=== PATIENT | female | born 1965 | race Caucasian/White ===

== ENCOUNTER → 2017-01-15 | Outpatient (CLI) | payer BC ==
[~2017-01-15] MED LIST: ACET-1138 PO; ASPI81TA28 PO; OXYSR10 PO; RXC5 PO
== END | disposition home or self-care (01) ==
LOC: C.PAPS 15:01
PROVIDERS: ATTEND Internal Medicine
DX: Z01.419 Encounter for gynecological examination (general) (routine) without abnormal findings (principal)

== ENCOUNTER → 2017-01-16 | Outpatient (CLI) | payer BC | END | disposition home or self-care (01) | LOC: C.LABSPEC 15:18 | PROVIDERS: ATTEND Internal Medicine | DX: Z12.11 Encounter for screening for malignant neoplasm of colon (principal) ==

== ENCOUNTER → 2017-01-18 | Outpatient (CLI) | payer BC ==
[2017-01-18 12:24] LABS: BASO % 1.6 %; BASO ABS # 0.11 K/uL (0-0.2); COMPLETE YES; EOS % 3.2 %; HEMATOCRIT 43.1 % (37-47); IG% 0.1 %; LYMPH % 33.8 %; LYMPH ABS # 2.31 K/uL (1.2-3.4); MEAN CELL VOLUME 85.3 fL (80-100); MEAN CORPUSCULAR HEMOGLOBIN 29.5 pg (25-34); MEAN CORPUSCULAR HGB CONC 34.6 g/dl (32-36); MEAN PLATELET VOLUME 12.1 fL (7.4-10.4); MONO % 6.4 %; NEUT % 54.9 %; PLATELET COUNT 242 K/uL (130-400); RED BLOOD COUNT 5.05 M/uL (4.2-5.4); WHITE BLOOD COUNT 6.84 K/uL (4.8-10.8)
[2017-01-18 13:24] LABS: AST/SGOT 17 U/L (15-37); BLOOD UREA NITROGEN 14 mg/dl (7-18); BUN/CREATININE RATIO 17.8 (10-20); CARBON DIOXIDE 24 mmol/L (21-32); CHLORIDE 109 mmol/L (98-107); CREATININE 0.81 mg/dl (0.60-1.20); GLUCOSE 109 mg/dl (70-99); POTASSIUM 3.9 mmol/L (3.5-5.1); SODIUM 141 mmol/L (136-145)
[2017-01-18 13:30] LABS: ESTIMATED AVERAGE GLUCOSE 111 mg/dl; HA1C FLAG Normal (Normal)
[2017-01-18 13:54] LABS: ALB/GLOB RATIO 0.9 (0.9-2); ALKALINE PHOSPHATASE 118 U/L (45-117); ALT/SGPT 24 U/L (12-78); CHOLESTEROL 196 mg/dl (0-200); CHOLESTEROL/HDL RATIO 3.3; HDL CHOLESTEROL 59 mg/dl; TRIGLYCERIDES 111 mg/dl (0-150); VERY LOW DENSITY LIPOPROT CALC 22 mg/dl
[2017-01-18 14:35] LABS: CALCIUM 9.4 mg/dl (8.5-10.1)
== END | disposition home or self-care (01) ==
LOC: C.LABSPEC 12:05
PROVIDERS: ATTEND Internal Medicine
DX: R53.83 Other fatigue (principal); R73.9 Hyperglycemia, unspecified; E78.5 Hyperlipidemia, unspecified

== ENCOUNTER → 2017-01-25 | Outpatient (CLI) | payer BC ==
--- NOTE | 2017-01-25 16:35 | MAMMOGRAPHY REPORT ---
BILATERAL DIGITAL SCREENING MAMMOGRAM TOMOSYNTHESIS WITH CAD: 01/25/2017 CLINICAL HISTORY: Routine screening. Patient has no complaints. TECHNIQUE: Breast tomosynthesis in addition to standard 2D mammography was performed. Current study was also evaluated with a Computer Aided Detection (CAD) system. COMPARISON: Comparison is made to exams dated: 09/16/2015 mammogram, 05/21/2014 mammogram, 03/26/2013 mammogram, 06/02/2011 mammogram, 06/01/2010 mammogram - [facility], and 11/02/2006. BREAST COMPOSITION: There are scattered areas of fibroglandular density in both breasts. FINDINGS: No suspicious masses, calcifications, or areas of architectural distortion are noted in e ither breast. There has been no significant interval change compared to prior exams. IMPRESSION: ACR BI-RADS CATEGORY 1: NEGATIVE There is no mammographic evidence of malignancy. A 1 year screening mammogram is recommended. The p atient will receive written notification of the results. Approximately 10% of breast cancers are not detected with mammography. A negative mammographic repor t should not delay biopsy if a clinically suggestive mass is present. Janel Olguin M.D. ah/:01/25/2017 15:26:58 Mobile Lounge Driver Or Operator: Richy WASSERMAN(Parviz)(M), [facility] letter sent: Normal 1/2 BI-RADS Code: ACR BI-RADS Category 1: Negative
== END | disposition home or self-care (01) ==
LOC: C.MAMM 14:45
PROVIDERS: ATTEND Internal Medicine
DX: Z12.31 Encounter for screening mammogram for malignant neoplasm of breast (principal)

== ENCOUNTER → 2018-05-02 | Outpatient (CLI) | payer BC ==
--- NOTE | 2018-05-02 16:00 | MAMMOGRAPHY REPORT ---
BILATERAL DIGITAL SCREENING MAMMOGRAM TOMOSYNTHESIS WITH CAD: 05/02/2018 CLINICAL HISTORY: Routine screening. Patient has no complaints. TECHNIQUE: The study was acquired using full field digital technology and interpreted from soft copy. Breast tomosynthesis in addition to standard 2D mammography was performed. Current study was also ev aluated with a Computer Aided Detection (CAD) system. COMPARISON: Comparison is made to exams dated: 01/25/2017 mammogram, 09/16/2015 mammogram, 05/21/2014 mammogram, 06/02/2011 mammogram, 06/01/2010 mammogram - [facility], and 11/02/2006. BREAST COMPOSITION: There are scattered areas of fibroglandular density in both breasts. FINDINGS: No suspicious masses, calcifications, or areas of architectural distortion are noted in either breast . There has been no significant interval change compared to prior exams. IMPRESSION: ACR BI-RADS CATEGORY 1: NEGATIVE There is no mammographic evidence of malignancy. A 1 year screening mammogram is recommended.( 019) The patient will receive written notification of the results. Some breast cancers are not detected with mammography. A negative mammographic report should not philippe y biopsy if a clinically suggestive mass is present. Janel Olguin M.D. ah/:05/02/2018 13:42:02 [employer] Specialist: RT Aaron(Parviz)(M), [facility] letter sent: Normal 1/2 BI-RADS Code: ACR BI-RADS Category 1: Negative
== END | disposition home or self-care (01) ==
LOC: C.MAMM 11:47
PROVIDERS: ATTEND Internal Medicine
DX: Z12.31 Encounter for screening mammogram for malignant neoplasm of breast (principal)

== ENCOUNTER 2022-05-01 18:13 | Observation (INO) ==
[2022-05-01] MEDS ORDERED: SODIUM CHLORIDE 0.9% 1000ML 1,000 ML IV ONE ×2 (18:27→20:06)
[2022-05-01] MEDS ORDERED: diphenhydrAMINE 50 MG/ML VIAL IV STA (18:27)
[2022-05-01] MEDS ORDERED: FAMOTIDINE 20MG IV PUSH 20 MG/5 ML SYR IV STA (18:27)
[2022-05-01 19:00] LABS: Basophils # (auto) 0.04 K/uL (0-0.2); Basophils % (auto) 0.4 %; Eosinophils # (auto) 0.11 K/uL (0-0.50); Eosinophils % (auto) 1.1 %; Hematocrit (blood only) 45.3 % (34.1-44.9); Hemoglobin 14.7 g/dl (12.0-16.0); Immature Granulocytes # (auto) 0.07 K/uL (0.00-0.02); Immature Granulocytes % (auto) 0.7 %; Lymphocytes # (auto) 2.56 K/uL (1.2-3.4); Lymphocytes % (auto) 26.2 %; Mean Corpuscular Hemoglobin 28.3 pg (25.0-34.0); Mean Corpuscular Hgb Conc 32.5 g/dL (32.0-36.0); Mean Corpuscular Volume 87.3 fL (80.0-100.0); Mean Platelet Volume 11.3 fL (9.4-12.3); Monocytes % (auto) 3.1 %; Neutrophils # (auto) 6.68 K/uL (1.4-6.5); Neutrophils % (auto) 68.5 %; Platelet Count 242 K/uL (130-400); RDW Coefficient of Variation 13.9 % (11.5-14.5); RDW Standard Deviation 44.4 fL (36.4-46.3); Red Blood Count 5.19 M/uL (3.93-5.22); White Blood Count 9.76 K/ul (4.8-10.8)
--- NOTE | 2022-05-01 19:25 | Emergency Department Note ---
History of Present Illness General Chief complaint: Allergic Reaction Stated complaint: ALLERGIC REACTION, SKIN ON FIRE, TINGLING Time Seen by Provider: 05/01/22 18:19 Source: patient Mode of arrival: ambulatory Limitations: no limitations History of Present Illness Provider complaint: Possible allergic reaction This is a 57-year-old female presents emergency department with concern for multiple symptoms and possible allergic reaction. Patient states this afternoon she began noticing warmth and itching in her feet which seem to be ascending up her legs and her abdomen. She then developed nausea, vomiting, and diarrhea. She had multiple episodes of vomiting and diarrhea, states there is no blood noted in either. She states she then felt redness and warmth coming up into her chest and arms. She states she felt a slight sense of heaviness to her chest and mild difficulty breathing. Patient denies any recent travel, tick or insect bites, or new personal hygiene products. No prior similar reactions. Patient states she does not take any medications. Other than redness patient denies any other rash or hives. Pt seen during a time of high acuity and national emergency pandemic while wearing PPE. Home Medications Medication Instructions Recorded Confirmed Type No Known Home Medications 05/01/22 05/01/22 History Allergies Allergy/AdvReac Type Severity Reaction Status Date / Time grass pollen-perennial rye, Allergy Intermediate SNEEZING, Verified 05/01/22 19: 54 standar CONGESTION Sulfa (Sulfonamide Allergy Intermediate HIVES Verified 05/01/22 19:54 Antibiotics) Past Med/Surg History Medical History Blood in stool History of benign spinal cord tumor Morbid obesity with BMI of 40.0-44.9, adult Surgical History History of ankle fusion BL History of bladder surgery History of colonoscopy History of knee replacement procedure of left knee History of knee replacement procedure of right knee History of surgery removal of benign spinal cord tumor at age 9 History of tonsillectomy Family History Sister Cancer Breast cancer Patient's sister is 2nd sister Social History Smoking Status: Never smoker Second Hand Exposure: Yes (father was a smoker); Hx Alcohol Use: Yes Alcohol type: hard liquor Alcohol Intake Frequency Comment: Social Hx Substance Use: No Preferred Language: Mongolian Communication Ability: Effective Glove Machine Operator Required: No Beliefs That Will Affect Care: None Current Living Situation: Alone Feels Safe at Home: Yes Safety Concerns: Feels Safe At This Time Assistive Devices: Glasses Review of Systems A total of 10 systems reviewed and were otherwise negative All systems reviewed & are unremarkable except as noted in HPI & below Physical Exam Vital Signs Vital Signs - 24 hr 05/01/22 18:17 05/01/22 18:14 05/01/22 18:14 Temperature 36.5 C Temperature Source Oral Pulse Rate 71 Pulse Rate [Apical] 60 Pulse Rhythm Regular Pulse Rhythm [Apical] Pulse Strength Normal Pulse Strength [Apical] Respiratory Rate 18 24 Respiratory Effort / Characteristics Non-Labored Spontaneous Respiratory Depth Normal Respiratory Pattern Regular Blood Pressure 128/77 Blood Pressure [Right Arm] 130/45 L Blood Pressure Mean 94 Blood Pressure Mean [Right Arm] 73 Blood Pressure Position Sitting Blood Pressure Position [Right Arm] Pulse Oximetry 95 98 98 Oxygen Delivery Method Room Air Room Air Room Air Sepsis Recent Fever Within 48 Hours No Sepsis New/Unexplained Change in Mental Status No Sepsis Action Taken by Nursing No Action Required 05/01/22 18:49 05/01/22 19:38 05/01/22 21:11 Temperature Temperature Source Pulse Rate Pulse Rate [Apical] 56 L 66 Pulse Rhythm Pulse Rhythm [Apical] Regular Pulse Strength Pulse Strength [Apical] Normal Respiratory Rate 16 20 Respiratory Effort / Characteristics Non-Labored Spontaneous Respiratory Depth Normal Respiratory Pattern Regular Blood Pressure Blood Pressure [Right Arm] 121/60 139/69 140/91 Blood Pressure Mean Blood Pressure Mean [Right Arm] 80 92 107 Blood Pressure Position Blood Pressure Position [Right Arm] Semi-fowlers Pulse Oximetry 97 96 Oxygen Delivery Method Room Air Room Air Sepsis Recent Fever Within 48 Hours Sepsis New/Unexplained Change in Mental Status Sepsis Action Taken by Nursing 05/02/22 00:15 Temperature Temperature Source Pulse Rate Pulse Rate [Apical] 72 Pulse Rhythm Pulse Rhythm [Apical] Regular Pulse Strength Pulse Strength [Apical] Normal Respiratory Rate 16 Respiratory Effort / Characteristics Non-Labored Spontaneous Respiratory Depth Normal Respiratory Pattern Regular Blood Pressure Blood Pressure [Right Arm] 116/57 L Blood Pressure Mean Blood Pressure Mean [Right Arm] 76 Blood Pressure Position Blood Pressure Position [Right Arm] Semi-fowlers Pulse Oximetry 96 Oxygen Delivery Method Room Air Sepsis Recent Fever Within 48 Hours Sepsis New/Unexplained Change in Mental Status Sepsis Action Taken by Nursing GENERAL: alert, well appearing, well nourished, no distress, non-toxic EYE EXAM: normal conjunctiva, PERRL and EOM's grossly intact OROPHARYNX: no exudate, no erythema, lips, buccal mucosa, and tongue normal and mucous membranes are moist NECK: supple, no nuchal rigidity, no adenopathy, non-tender LUNGS: Clear to auscultation. Normal chest wall mechanics, no w/r/r HEART: no murmurs, S1 normal and S2 normal ABDOMEN: abdomen soft, non-tender, normo-active bowel sounds, no masses, no rebound or guarding. BACK: Back is symmetrical on inspection and there is no deformity, no midline tenderness, no CVA tenderness. SKIN: no rashes and no bruising UPPER EXTREMITIES: upper extremities are grossly normal. FROM, nml pulses b/l. LOWER EXTREMITIES: No pitting edema. FROM, nml pulses b/l. NEURO EXAM: Normal sensorium, cranial nerves II-XII grossly intact, normal speech, no gross weakness of arms, no gross weakness of legs. Gross sensation intact. Course Course 1939: Pt states she is feeling better. 2224: Patient updated on additional results. No recurrent symptoms. Administered Medications Discontinued Medications Diphenhydramine HCl (Diphenhydramine 50 Mg/Ml Vial) 25 mg IV NOW STA Stop: 05/01/22 18:28 Last Admin: 05/01/22 18:41 Dose: 25 mg Documented By: HUNTER Sodium Chloride (Nss 1000ml) 1,000 mls @ 999 mls/hr IV .Q1H1M ONE Stop: 05/01/22 19:27 Last Infusion: 05/01/22 19:47 Dose: 0 mls/hr Documented By: Admin: 05/01/22 18:41 Dose: 999 mls/hr Documented By: HUNTER Famotidine (Pepcid 20mg Iv Push) 20 mg in 5 mls @ 2.5 mls/min IV NOW STA Stop: 05/01/22 18:28 Last Admin: 05/01/22 18:41 Dose: 2.5 mls/min Documented By: HUNTER Sodium Chloride (Nss 1000ml) 1,000 mls @ 999 mls/hr IV .Q1H1M ONE Stop: 05/01/22 21:06 Last Infusion: 05/01/22 21:10 Dose: 0 mls/hr Documented By: Admin: 05/01/22 20:28 Dose: 999 mls/hr Documented By: MIN Medical Decision Making Differential Diagnosis Differential diagnosis includes but is not limited to anaphylaxis, generalized allergic reaction, medication reaction, urticaria, contact dermatitis, scarlet fever, Grissom-Don syndrome, Toxic Epidermal necrolysis Medical Records Attestation: I reviewed the patient's medical records. Home Medications Current Medication List: was personally reviewed by me Laboratory Data Attestation: I reviewed the patient's lab results. Result diagrams: 05/01/22 18:38 05/01/22 18:38 Lab Results 05/01/22 05/01/22 05/01/22 Range/Units 18:38 18:38 18:38 WBC 9.76 (4.8-10.8) K/ul RBC 5.19 (3.93-5.22) M/uL Hgb 14.7 (12.0-16.0) g/dl Hct 45.3 H (34.1-44.9) % MCV 87.3 (80.0-100.0) fL MCH 28.3 (25.0-34.0) pg MCHC 32.5 (32.0-36.0) g/dL RDW Std Deviation 44.4 (36.4-46.3) fL RDW Coeff of Pardeep 13.9 (11.5-14.5) % Plt Count 242 (130-400) K/uL MPV 11.3 (9.4-12.3) fL Immature Gran % (Auto) 0.7 % Neut % (Auto) 68.5 % Lymph % (Auto) 26.2 % Mayes % (Auto) 3.1 % Eos % (Auto) 1.1 % Baso % (Auto) 0.4 % Neut # (Auto) 6.68 H (1.4-6.5) K/uL Lymph # (Auto) 2.56 (1.2-3.4) K/uL Mayes # (Auto) 0.30 (0.24-0.82) K/uL Eos # (Auto) 0.11 (0-0.50) K/uL Baso # (Auto) 0.04 (0-0.2) K/uL Immature Gran # (Auto) 0.07 H (0.00-0.02) K/uL Sodium 138 (136-145) mmol/L Potassium 3.8 (3.5-5.1) mmol/L Chloride 105 (98-107) mmol/L Carbon Dioxide 21 (21-32) mmol/L Anion Gap 12 H (3-11) BUN 20 (6-23) mg/dl Creatinine 1.27 H (0.6-1.2) mg/dl Est Cr Clr Drug Dosing 52.7 ml/min Est GFR ( Amer) 54.3 ml/min Est GFR (Non-Af Amer) 46.8 ml/min BUN/Creatinine Ratio 15.7 (10-20) Glucose 160 H (70-99(Fasting)) mg/dl Calcium 9.5 (8.5-10.1) mg/dl Magnesium 1.8 (1.7-2.4) mg/dl Total Bilirubin 0.5 (0.2-1.0) mg/dl AST 21 (13-39) U/L ALT 21 (7-52) U/L Alkaline Phosphatase 106 H (34-104) U/L Troponin I High Sens 10.6 (0-14) pg/ml Total Protein 7.5 (6.0-8.3) gm/dl Albumin 4.1 (3.4-5.0) gm/dl Globulin 3.4 (2.5-4.0) gm/dl Albumin/Globulin Ratio 1.2 (0.9-2) Lipase 16 (11-82) U/L TSH 7.461 H (0.300-4.500) uIu/ml Free T4 0.94 (0.61-1.60) ng/dl Lyme Disease IgG Ab (Negative) Lyme Disease IgM Ab (Negative) SARS-CoV-2, RNA, NAAT (NEGATIVE) 05/01/22 05/01/22 05/01/22 Range/Units 18:38 21:14 22:44 WBC (4.8-10.8) K/ul RBC (3.93-5.22) M/uL Hgb (12.0-16.0) g/dl Hct (34.1-44.9) % MCV (80.0-100.0) fL MCH (25.0-34.0) pg MCHC (32.0-36.0) g/dL RDW Std Deviation (36.4-46.3) fL RDW Coeff of Pardeep (11.5-14.5) % Plt Count (130-400) K/uL MPV (9.4-12.3) fL Immature Gran % (Auto) % Neut % (Auto) % Lymph % (Auto) % Mayes % (Auto) % Eos % (Auto) % Baso % (Auto) % Neut # (Auto) (1.4-6.5) K/uL Lymph # (Auto) (1.2-3.4) K/uL Mayes # (Auto) (0.24-0.82) K/uL Eos # (Auto) (0-0.50) K/uL Baso # (Auto) (0-0.2) K/uL Immature Gran # (Auto) (0.00-0.02) K/uL Sodium (136-145) mmol/L Potassium (3.5-5.1) mmol/L Chloride (98-107) mmol/L Carbon Dioxide (21-32) mmol/L Anion Gap (3-11) BUN (6-23) mg/dl Creatinine (0.6-1.2) mg/dl Est Cr Clr Drug Dosing ml/min Est GFR ( Amer) ml/min Est GFR (Non-Af Amer) ml/min BUN/Creatinine Ratio (10-20) Glucose (70-99(Fasting)) mg/dl Calcium (8.5-10.1) mg/dl Magnesium (1.7-2.4) mg/dl Total Bilirubin (0.2-1.0) mg/dl AST (13-39) U/L ALT (7-52) U/L Alkaline Phosphatase (34-104) U/L Troponin I High Sens 28.6 H D (0-14) pg/ml Total Protein (6.0-8.3) gm/dl Albumin (3.4-5.0) gm/dl Globulin (2.5-4.0) gm/dl Albumin/Globulin Ratio (0.9-2) Lipase (11-82) U/L TSH (0.300-4.500) uIu/ml Free T4 (0.61-1.60) ng/dl Lyme Disease IgG Ab Negative (Negative) Lyme Disease IgM Ab Negative (Negative) SARS-CoV-2, RNA, NAAT NEGATIVE (NEGATIVE) 05/02/22 Range/Units 00:25 WBC (4.8-10.8) K/ul RBC (3.93-5.22) M/uL Hgb (12.0-16.0) g/dl Hct (34.1-44.9) % MCV (80.0-100.0) fL MCH (25.0-34.0) pg MCHC (32.0-36.0) g/dL RDW Std Deviation (36.4-46.3) fL RDW Coeff of Pardeep (11.5-14.5) % Plt Count (130-400) K/uL MPV (9.4-12.3) fL Immature Gran % (Auto) % Neut % (Auto) % Lymph % (Auto) % Mayes % (Auto) % Eos % (Auto) % Baso % (Auto) % Neut # (Auto) (1.4-6.5) K/uL Lymph # (Auto) (1.2-3.4) K/uL Mayes # (Auto) (0.24-0.82) K/uL Eos # (Auto) (0-0.50) K/uL Baso # (Auto) (0-0.2) K/uL Immature Gran # (Auto) (0.00-0.02) K/uL Sodium (136-145) mmol/L Potassium (3.5-5.1) mmol/L Chloride (98-107) mmol/L Carbon Dioxide (21-32) mmol/L Anion Gap (3-11) BUN (6-23) mg/dl Creatinine (0.6-1.2) mg/dl Est Cr Clr Drug Dosing ml/min Est GFR ( Amer) ml/min Est GFR (Non-Af Amer) ml/min BUN/Creatinine Ratio (10-20) Glucose (70-99(Fasting)) mg/dl Calcium (8.5-10.1) mg/dl Magnesium (1.7-2.4) mg/dl Total Bilirubin (0.2-1.0) mg/dl AST (13-39) U/L ALT (7-52) U/L Alkaline Phosphatase (34-104) U/L Troponin I High Sens 21.9 H (0-14) pg/ml Total Protein (6.0-8.3) gm/dl Albumin (3.4-5.0) gm/dl Globulin (2.5-4.0) gm/dl Albumin/Globulin Ratio (0.9-2) Lipase (11-82) U/L TSH (0.300-4.500) uIu/ml Free T4 (0.61-1.60) ng/dl Lyme Disease IgG Ab (Negative) Lyme Disease IgM Ab (Negative) SARS-CoV-2, RNA, NAAT (NEGATIVE) Imaging Data Radiologist's Impression: Chest/Abdomen X-ray 05/01/22 18:27 PA CHEST RADIOGRAPH AND UPRIGHT AND SUPINE AP RADIOGRAPHS OF THE ABDOMEN CLINICAL HISTORY: Abdominal pain, nausea, vomiting and diarrhea. COMPARISON STUDY: Chest radiograph April 03, 2018. FINDINGS: Lung volumes are normal. There is no pneumothorax or pleural effusion. No consolidation is identified to suggest pneumonia. No evidence for pulmonary edema. Subtle interstitial thickening is probably chronic. There is no free air. Multiple bowel air-fluid levels are noted on upright projection. No evidence for a bowel obstruction. No urinary calculi are identified by radiography. There is mild levoscoliosis of the lumbar spine. IMPRESSION: 1. No free air or evidence of bowel obstruction. 2. No acute cardiopulmonary findings. ACT 112: Negative or not required by law. Electronically signed by: Rodrick Dawson M.D. 05/01/2022 7:55 PM ECG Data Attestation: I personally reviewed and interpreted this ECG as follows: Indication: + chest pain and + SOB/dyspnea Rate (beats per minute): 55 Rhythm: + sinus bradycardia ECG Intervals/blocks: + Normal QRS and + Normal QT ECG Napoleon: + Normal ECG ST segments: + Normal ST segments MDM Narrative An order was placed for continuous cardiac monitoring. The monitor shows a rate of __58_ with _sinus bradycardia_ rhythm. This is a 57-year-old female who presents due to concern for evolving allergic reaction. Symptoms initially began the patient's feet and seem to be a sending in nature including vomiting, diarrhea, chest heaviness and shortness of breath. Patient's initial labs reassuring as were x-rays. Patient reported feeling improved after Pepcid, Benadryl, and IV fluids. Patient's erythroderma improved also on repeat exam. Patient was afebrile and hemodynamically stable. EKG reassuring. Given atypical evolution of symptoms and unclear etiology, repeat troponin was performed, however unfortunately this was elevated compared to the prior. Case discussed with hospitalist for additional evaluation and management. Heart score 2. Patient had no other recurrent chest heaviness or pain, no shortness of breath while present the emergency room. Given no recurrent symptoms and no EKG changes, I have a lower suspicion for Kounis syndrome. Patient has no contributory family history. Patient was first seen and observation began at 181 and was necessary in order to evaluate symptoms and rule out ACS. Upon re-evaluation, 4 hours of observation revealed that the patient should be admitted. Discharge from observation at 225. Impression & Plan Nausea vomiting and diarrhea, Chest pain, Dyspnea, Erythroderma Discharge Plan Visit Data Chief Complaint: Allergic Reaction Stated Complaint: ALLERGIC REACTION, SKIN ON FIRE, TINGLING ED Provider: Sendy Yi Discharge Problem: Nausea vomiting and diarrhea, Chest pain, Dyspnea, Erythroderma Patient Disposition: Admitted As Inpatient Condition: Good Discharge Instructions Interventions: ED Discharge Assessment Last Done: 05/02/22 01:52
[2022-05-01 19:28] LABS: Troponin I High Sensitivity 10.6 pg/ml (0-14)
[2022-05-01 19:31] LABS: Albumin Globulin Ratio 1.2 (0.9-2); Albumin Level 4.1 gm/dl (3.4-5.0); BUN Creatinine Ratio 15.7 (10-20); Bilirubin,Total 0.5 mg/dl (0.2-1.0); Calcium 9.5 mg/dl (8.5-10.1); Creatinine Clr Calc Pharmacy 52.7 ml/min; Est GFR (African American) 54.3 ml/min; Est GFR (Non-African American) 46.8 ml/min; Globulin 3.4 gm/dl (2.5-4.0); Magnesium 1.8 mg/dl (1.7-2.4); Potassium 3.8 mmol/L (3.5-5.1); Total Protein 7.5 gm/dl (6.0-8.3)
[2022-05-01 19:37] LABS: Thyroid Stimulating Hormone 7.461 uIu/ml (0.300-4.500)
[2022-05-01 19:48] LABS: Lyme Ab IgG w/WB Rflx Negative (Negative); Lyme Ab IgM w/WB Rflx Negative (Negative)
--- NOTE | 2022-05-01 19:56 | XRay Report ---
PA CHEST RADIOGRAPH AND UPRIGHT AND SUPINE AP RADIOGRAPHS OF THE ABDOMEN CLINICAL HISTORY: Abdominal pain, nausea, vomiting and diarrhea. COMPARISON STUDY: Chest radiograph April 03, 2018. FINDINGS: Lung volumes are normal. There is no pneumothorax or pleural effusion. No consolidation is identified to suggest pneumonia. No evidence for pulmonary edema. Subtle interstitial thickening is probably chronic. There is no free air. Multiple bowel air-fluid levels are noted on upright projecti on. No evidence for a bowel obstruction. No urinary calculi are identified by radiography. There is m ild levoscoliosis of the lumbar spine. IMPRESSION: 1. No free air or evidence of bowel obstruction. 2. No acute cardiopulmonary findings. ACT 112: Negative or not required by law. Electronically signed by: Rodrick Dawson M.D. 05/01/2022 7:55 PM
[2022-05-01 20:19] LABS: T4 Free Thyroxine 0.94 ng/dl (0.61-1.60)
--- NOTE | 2022-05-01 23:45 | History & Physical Report ---
Date of Service May 01, 2022 Assessment & Plan (1) Elevated troponin: Plan: 57yo female presented to the ED with multiple symptoms concerning for allergic reaction, which resolved with benadryl administration; however, patient was noted with an elevated troponin, and is being admitted for troponin monitoring. Elevated troponin In ED, initial hsTroponin (at 18:30) was not elevated, though repeat (at 21:00) was slightly elevated to 28.6 EKG: sinus bradycardia without overt ischemic change Patient notes mild SOB earlier during the episode of nausea/vomiting/diarrhea, but this has resolved Denies CP both currently and during her symptomatic episode earlier today Repeat level (at 12:30) pending HbA1c and fasting lipid profile ordered EKG in AM Rash, nausea, vomiting, diarrhea Suspect secondary to allergic reaction, though without identifiable trigger, no known contact with new substances Patient does endorse a history of allergic reactions including SOB with bee stings during childhood All symptoms resolved quickly once patient received benadryl IV in the ED Lyme Ig testing negative; low suspicion for other tickborne illness given immediate symptom resolution with benadryl, lack of classic lab abnormalities Will hold off on ordering benadryl prn, as patient should be examined if her rash recurs while in hospital Consider outpatient allergy testing, consider epipen prescription+education upon discharge TYRON Creatinine on admission elevated to 1.27 (baseline ~0.8) Unclear etiology; low suspicion for prerenal given patient's vomiting/diarrhea started ~90 mins prior to BMP being drawn, and patient denies recent poor PO intake NSS 1L bolus (x2) in ED, will give additional LR 1L bolus (x1) Repeat BMP in AM Elevated TSH TSH on admission elevated to 7.5, concerning for hypothyroidism vs acute phase reactant Patient without fatigue, skin/hair changes, cold sensitivity Sinus bradycardia noted, though this is chronic and likely related to patient being very physical activity Recommend repeat TSH in six weeks, no further intervention at this time FEN: regular diet Code status: full code DVT ppx: SCDs Held home meds: none Dispo: med/surg (2) Rash: (3) Nausea & vomiting: (4) Diarrhea: (5) Elevated TSH: History of Present Illness Primary Care Provider: NO PCP 57yo female presents with multiple symptoms concerning for allergic reaction. This afternoon, patient noticed warmth and itching in her feet which then spread upwards to her abdomen. Patient then developed nausea, vomiting, and diarrhea, all nonbloody. The rash and itching then spread to her chest, back, and arms, and was associated with mild SOB and sweating. Patient denies other symptoms during her episode or in the time since, including known fever, chills, headache, vision changes, CP, wheezing, abdominal pain, dizziness, LOC, or falls. Denies recent travel, tick exposure or known tick bites, contact with new detergents/fabrics/etc, or contact with other known irritants. Reports this has not happened before, although patient does note a history of allergic reaction to bee stings during childhood which caused SOB. In the ED, patient received benadryl IV, which led to a near-immediate resolution of all symptoms. Patient's symptoms have not returned since then, and at the moment she feels "great". Surrogate decision-maker in the event of an emergency: Santa Tatyana (sister @ [phone]) Allergies Allergy/AdvReac Type Severity Reaction Status Date / Time grass pollen-perennial rye, Allergy Intermediate SNEEZING, Verified 05/01/22 19:54 standar CONGESTION Sulfa (Sulfonamide Allergy Intermediate HIVES Verified 05/01/22 19:54 Antibiotics) Home Medications Medication Instructions Recorded Confirmed Type epinephrine 0.3 mg/0.3 mL 0.3 mg (0.3 mL) IM Q4H PRN 05/02/22 Rx injection, auto-injector (EpiPen anaphylaxis #2 ea 2-Jarrod) Past Med/Surg History Medical History Blood in stool History of benign spinal cord tumor Morbid obesity with BMI of 40.0-44.9, adult Surgical History History of ankle fusion BL History of bladder surgery History of colonoscopy History of knee replacement procedure of left knee History of knee replacement procedure of right knee History of surgery removal of benign spinal cord tumor at age 9 History of tonsillectomy Family History Sister Cancer Breast cancer Patient's sister is 2nd sister Social History Smoking Status: Never smoker Second Hand Exposure: Yes (father was a smoker); Hx Alcohol Use: Yes Alcohol type: hard liquor Alcohol Intake Frequency Comment: Social Hx Substance Use: No Preferred Language: Lao Communication Ability: Effective Home Mortgage Disclosure Act Specialist Required: No Beliefs That Will Affect Care: None Current Living Situation: Alone Feels Safe at Home: No Is there a partner from a previous relationship who is making you feel unsafe now?: No Assistive Devices: None Physical Exam Physical Exam: Constitutional: well-appearing, no acute distress HEENT: NCAT, no conjunctival injection, no scleral icterus CV: regular rhythm, no murmur appreciated, extremities well-perfused, no LE edema Resp: CTABL, no wheezes/rales/rhonchi appreciated, no increased work of breathing GI: soft, nondistended, nontender, BS normoactive MSK: no gross deformities appreciated Skin: warm, dry, no rash appreciated on face, chest, abdomen, back, or extremities Neuro: alert, oriented, no focal neurologic deficit appreciated Results & Data Results & Data ([facility]) Vital Signs (Past 12 Hours) Vital Signs Temp Pulse Pulse Resp BP BP Pulse Ox 05/01/22 21:11 66 20 140/91 96 05/01/22 19:38 56 L 16 139/69 97 05/01/22 18:49 121/60 05/01/22 18:14 60 24 130/45 L 98 05/01/22 18:14 98 05/01/22 18:17 36.5 C 71 18 128/77 95 O2 Del Method 05/01/22 21:11 Room Air 05/01/22 19:38 Room Air 05/01/22 18:49 05/01/22 18:14 Room Air 05/01/22 18:14 Room Air 05/01/22 18:17 Room Air Supervising Physician Co-Signing Physician Notes Patient seen and examined, chart reviewed, case discussed with Dr. Casper and I agree with the assessment and plan as above. Patient presents with what sounds to be an allergic reaction with rash, nausea, vomiting and diarrhea. Possible flushing? Elevated in troponin in the ER without chest pain or cardiac symptoms. Exam is unremarkable. Patient resting comfortably - snoring Skin - intact, no rash HEENT - NC/AT, PERRL, MMM, Neck supple Heart - +S1/S2, regular, no m/r/g Lungs - CTA, no wheeze or stridor Abd - +BS, soft, NT/ND Ext - warm, well perfused Labs and images reviewed Assessment/Plan -trend troponin -Check lipids, A1C -Establish PCP - consider referral to resident service -Consider outpatient sleep study - patient snoring in ER -Remainder as above Resident Activity Tracking Resident Involvement: Resident Care Provided and Computer Networking Instructor Adjunct Coverage Note Care Provided: Adult Hospital Medicine
[2022-05-02] MEDS ORDERED: LACTATED RINGER'S 1,000 ML IV ONE (02:26)
[2022-05-02] MEDS ORDERED: MELATONIN 3 MG TAB PO PRN (02:26)
[2022-05-02] MEDS ORDERED: ACETAMINOPHEN 325 MG TAB PO PRN (02:26)
[2022-05-02 09:29] LABS: BUN Creatinine Ratio 17.9 (10-20); Calcium 8.8 mg/dl (8.5-10.1); Creatinine Clr Calc Pharmacy 97.9 ml/min; Est GFR (African American) 89.4 ml/min; Est GFR (Non-African American) 77.2 ml/min; Potassium 4.2 mmol/L (3.5-5.1)
[2022-05-02 10:59] LABS: Basophils # (auto) 0.07 K/uL (0-0.2); Basophils % (auto) 1.1 %; Eosinophils # (auto) 0.18 K/uL (0-0.50); Eosinophils % (auto) 2.9 %; Hematocrit (blood only) 36.1 % (34.1-44.9); Hemoglobin 11.6 g/dl (12.0-16.0); Immature Granulocytes # (auto) 0.03 K/uL (0.00-0.02); Immature Granulocytes % (auto) 0.5 %; Lymphocytes # (auto) 1.16 K/uL (1.2-3.4); Lymphocytes % (auto) 18.7 %; Mean Corpuscular Hgb Conc 32.1 g/dL (32.0-36.0); Mean Corpuscular Volume 87.2 fL (80.0-100.0); Mean Platelet Volume 11.6 fL (9.4-12.3); Monocytes % (auto) 6.5 %; Neutrophils # (auto) 4.36 K/uL (1.4-6.5); Neutrophils % (auto) 70.3 %; Platelet Count 185 K/uL (130-400); RDW Coefficient of Variation 14.2 % (11.5-14.5); RDW Standard Deviation 45.3 fL (36.4-46.3); Red Blood Count 4.14 M/uL (3.93-5.22)
[2022-05-02 11:41] LABS: Estimated Average Glucose 114 mg/dl; Hemoglobin A1C 5.6 % (4.5-5.6)
--- NOTE | 2022-05-02 12:36 | Electrocardiogram Report ---
Test Reason : Blood Pressure : / mmHG Vent. Rate : 055 BPM Atrial Rate : 055 BPM P-R Int : 134 ms QRS Dur : 096 ms QT Int : 438 ms P-R-T Axes : 066 021 044 degrees QTc Int : 419 ms Poor data quality, interpretation may be adversely affected Sinus bradycardia Nonspecific ST abnormality Inferior leads Abnormal ECG When compared with ECG of 26-JAN-2016 14:25, No significant change was found Confirmed by Guillermo Wong ([id number]) on 05/02/2022 12:36:31 PM Referred By: REFERRED SELF Confirmed By:Guillermo Wong
--- NOTE | 2022-05-02 12:37 | Electrocardiogram Report ---
Test Reason : Blood Pressure : / mmHG Vent. Rate : 057 BPM Atrial Rate : 057 BPM P-R Int : 176 ms QRS Dur : 088 ms QT Int : 418 ms P-R-T Axes : 059 038 023 degrees QTc Int : 406 ms Sinus bradycardia Nonspecific ST abnormality Inferior leads Abnormal ECG When compared with ECG of 01-MAY-2022 18:28, No significant change was found Confirmed by Guillermo Wong ([id number]) on 05/02/2022 12:36:52 PM Referred By: REFERRED SELF Confirmed By:Guillermo Wong
--- NOTE | 2022-05-02 18:30 | Discharge Summary ---
Date of Service May 02, 2022 Admission HPI Per Admitting Provider 57yo female presents with multiple symptoms concerning for allergic reaction. This afternoon, patient noticed warmth and itching in her feet which then spread upwards to her abdomen. Patient then developed nausea, vomiting, and diarrhea, all nonbloody. The rash and itching then spread to her chest, back, and arms, and was associated with mild SOB and sweating. Patient denies other symptoms during her episode or in the time since, including known fever, chills, headache, vision changes, CP, wheezing, abdominal pain, dizziness, LOC, or falls. Denies recent travel, tick exposure or known tick bites, contact with new detergents/fabrics/etc, or contact with other known irritants. Reports this has not happened before, although patient does note a history of allergic reaction to bee stings during childhood which caused SOB. In the ED, patient received benadryl IV, which led to a near-immediate resolution of all symptoms. Patient's symptoms have not returned since then, and at the moment she feels "great". Admission Exam (Per Admitting) Constitutional WD/WN, vitals as above Eyes PERRL, conjunctivae normal, anicteric sclerae ENMT external ear and nose normal, oropharynx normal Neck trachea midline, no thyromegaly Respiratory normal respiratory effort, lungs clear to auscultation Cardiovascular RRR, no murmur, no edema Gastrointestinal (Abdomen) normal bowel sounds, soft, nontender, no hepatosplenomegaly Musculoskeletal no cyanosis or clubbing, extremities motor strength 5/5 Discharge Data Consultations 05/01/22 22:59 ED Decision to Admit Stat Hospital Course (1) Elevated troponin: 57yo female presented to the ED with multiple symptoms concerning for Possible allergic reaction and noted to have slight elevation in troponin, She had redness in both legs going upto her abdomen. This resolved with Benadryl administration; Patient was given an EpiPen with instructions when to use it. Patient should f/u with PCP in 2 weeks. She was kept overnight for troponin monitoring. Troponin was repeated and only slightly elevated X2. EKG showed sinus bradycardia. Patient denied any CP. For her TYRON - it resolved after LR 1L Bolus. She was also noted to have elevated TSH w/o any hypothyroidism symptoms. She will need outpatient monitoring. She was noted to be snoring in the ED. Need for Outpatient sleep study should be discussed. (2) Rash: (3) Nausea & vomiting: (4) Diarrhea: (5) Elevated TSH: Discharge Instructions You were seen in the hospital for an allergic reaction due to an unknown cause. Symptoms resolved with Benadryl. You should use Benadryl if symptoms arise again. If you are unable to tolerate anything by mouth or have trouble breathing, then you should use an EpiPen which was prescribed to you this visit and sent to your pharmacy ([facility]). Follow up with PCP within 1 week. You will be called with appointment details. Supervising Physician Co-Signing Physician Notes Resident Physician Supervision Note: I independently interviewed and examined the patient and verified the adrian history and physical, reviewed labs and image studies and agree with resident Dr. Ray findings and care plan.
--- NOTE | 2022-05-02 18:50 | Billing Data ---
Date of Service May 02, 2022 Coding Level of Care Code INT OBSERVATION CARE 50M LVL 2
== END 2022-05-02 13:17 | disposition home or self-care (01) ==
LOC: ED 18:13 → INTOOBSV 05-02 00:46 → SUATTDRO 05-02 00:46 → 3W 05-02 01:52
DX: N17.9 Acute kidney failure, unspecified; Z91.048 Other nonmedicinal substance allergy status; R07.9 Chest pain, unspecified; R94.6 Abnormal results of thyroid function studies; R06.00 Dyspnea, unspecified; R11.2 Nausea with vomiting, unspecified; R21 Rash and other nonspecific skin eruption; R19.7 Diarrhea, unspecified; L53.8 Other specified erythematous conditions; Z88.2 Allergy status to sulfonamides; R77.8 Other specified abnormalities of plasma proteins